=== PATIENT | male | born 1970 | race African-American/Black ===

== ENCOUNTER 2020-11-11 17:51 | Emergency (ER) | payer SELFPAY ==
[2020-11-11] VITALS (8 sets, daily range): BP systolic 134–181; BP diastolic 63–91; PULSE 73–92; RESP 16–30; TEMP 37.6; O2SAT 96–99
--- NOTE | ~2020-11-11 | XR_ITS ---
XR chest 2V DATE: 11/11/2020 18:19 INDICATION: Irregular heart rate. Hypertension. Asthma. TECHNIQUE: PA and lateral views COMPARISON: None FINDINGS: Normal heart size. No hilar or mediastinal enlargement. No pulmonary vascular congestion or pleural effusion or pneumothorax. IMPRESSION: No active cardiopulmonary disease Reviewed, dictated and finalized at location A.
--- NOTE | 2020-11-11 17:54 | ECG_ITS ---
Measurements Intervals [place] Rate: 91 P: 55 GA: 147 QRS: 69 QRSD: 81 T: 37 QT: 348 QTc: 430 Interpretive Statements SINUS RHYTHM POSSIBLE LEFT ATRIAL ENLARGEMENT POSSIBLE LEFT VENTRICULAR HYPERTROPHY BORDERLINE ST-T WAVE ABNORMALITY- INFERIOR LEADS BORDERLINE ECG Electronically Signed On 11-11-2020 19:49:48 CDT by Gianfranco Santoro D.O.
[2020-11-11 18:13] LABS: Basophils Percent Auto 0.3 % (0.2-1.2); Eosinophils Absolute Auto 0.1 K/mm3 (0-0.3); Eosinophils Percent Auto 0.8 % (0-4.4); Hematocrit 38.8 % (42.0-52.0); Hemoglobin 12.5 g/dL (14.0-18.0); Immature Granulocyte Absolute 0.03 K/mm3 (0.00-0.031); Immature Granulocyte Percent A 0.5 % (0-0.5); Lymphocytes Absolute Auto 0.91 K/mm3 (0.9-3.2); Lymphocytes Percent Auto 15.4 % (18.3-44.2); Mean Corpuscular HGB Conc 32.2 g/dl (32-36); Mean Corpuscular Hemoglobin 27.4 pg (26-34); Mean Corpuscular Volume 84.9 fl (80-100); Mean Platelet Volume 10.6 fl (7.4-10.4); Monocytes Absolute Auto 0.9 K/mm3 (0.1-0.6); Monocytes Percent Auto 15.8 % (2.6-8.5); Neutrophils Percent Auto 67.2 % (45.5-73.1); Platelet Count Result 219 k/mm3 (150-375); Red Blood Count 4.57 M/mm3 (4.6-6.20); Red Cell Distribution Width 13.7 % (11.5-14.5); White Blood Count 5.9 K/mm3 (4.5-10.0)
[2020-11-11 18:24] LABS: Anion Gap 8 mmol/L (8-16); Blood Urea Nitrogen 17 mg/dL (9-20); Calcium 8.9 mg/dL (8.4-10.2); Carbon Dioxide 24 mmol/L (22-30); Chloride 108 mmol/L (98-107); Estimated CRCL calculation 75 ml/min; Estimated Glomerular Filt Rate > 60; Glucose 98 mg/dL (65-110); Potassium 3.6 mmol/L (3.4-5.0); Prothrombin Time 13.4 Seconds (11.1-14.7); Sodium 140 mmol/L (137-145)
[2020-11-11 18:25] LABS: Partial Thromboplastin Time 27.8 SECONDS (22.3-36.8)
[2020-11-11 18:36] LABS: Troponin I < 0.012 ng/mL (0.000-0.034)
[2020-11-11] MEDS: ASPIRIN 81 MG CHEWABLE TABLET 324 MG PO (19:52)
[2020-11-11] MEDS: LACTATED RINGERS 1,000 ML 999 ML IV CONT (20:10)
[2020-11-11] MEDS: PROCHLORPERAZINE EDISYLATE 10 MG/2 ML VIAL IV PUSH (20:10)
--- NOTE | 2020-11-11 21:24 | ED.CHESTPAIN ---
HPI - Chest Pain General Chief Complaint: Chest Pain <Hussain Armstrong MD - Last Filed: 11/11/20 21:35> Stated Complaint: CP <Hussain Armstrong MD - Last Filed: 11/11/20 21:35> Time Seen by Provider: 11/11/20 19:27 <Hussain Armstrong MD - Last Filed: 11/11/20 21:35> Source: patient and family <Hussain Armstrong MD - Last Filed: 11/11/20 21:35> Mode of arrival: ambulatory <Hussain Armstrong MD - Last Filed: 11/11/20 21:35> Limitations: no limitations <Hussain Armstrong MD - Last Filed: 11/11/20 21:35> History of Present Illness HPI narrative: 50-year-old male History of hypertension, but has been off of blood pressure medicine for about 3 years He thinks his blood pressures have been okay during that time Today well not doing any particularly stressful activities at around 2:00 he started having a feeling like his heart was racing and jumping around He continues to feel that symptom here even his his monitor shows a sinus rhythm at a rate of 82 Subsequently he started having some chest discomfort which has been persistent, does not radiate, not associated with shortness of breath diaphoresis nausea or vomiting After arriving to the hospital while he was in the waiting room he began having a headache which he describes as a 52 There are no other focal neuro symptoms no vomiting no neck pain no fever Not have a history of headaches <Hussain Armstrong MD - Last Filed: 11/11/20 21:35> Related Data Home Medications: Home Medications Medication Instructions Recorded Confirmed No Home Medications 11/11/20 11/11/20 <Hussain Armstrong MD - Last Filed: 11/11/20 21:35> Allergies/Adverse Reactions: Allergies Allergy/AdvReac Type Severity Reaction Status Date / Time No Known Allergies Allergy Verified 11/11/20 19:26 <Hussain Armstrong MD - Last Filed: 11/11/20 21:35> Review of Systems Review of Systems: All systems reviewed & are unremarkable except as noted in HPI and below <Hussain Armstrong MD - Last Filed: 11/11/20 21:35> Constitutional: Constitutional: Reports no additional constitutional complaints, Denies chills, Denies fatigue, Denies fever(s) and Denies headache(s) <Hussain Armstrong MD - Last Filed: 11/11/20 21:35> Eyes: Eyes: Reports no additional eye complaints, Denies change in vision and Denies photophobia <Hussain Armstrong MD - Last Filed: 11/11/20 21:35> ENT: Denies headache(s) and Denies sore throat <Hussain Armstrong MD - Last Filed: 11/11/20 21:35> Cardiovascular: Cardiovascular: Reports chest pain, Reports rapid heart rate and Denies dyspnea <Hussain Armstrong MD - Last Filed: 11/11/20 21:35> Respiratory: Respiratory: Denies cough and Denies dyspnea <Hussain Armstrong MD - Last Filed: 11/11/20 21:35> Gastrointestinal: Gastrointestinal: Denies abdominal pain, Denies diarrhea, Denies nausea and Denies vomiting <Hussain Armstrong MD - Last Filed: 11/11/20 21:35> Genitourinary: Genitourinary: Denies dysuria and Denies urinary frequency <Hussain Armstrong MD - Last Filed: 11/11/20 21:35> Musculoskeletal: Musculoskeletal: Denies deformity, Denies arthralgias, Denies joint swelling and Denies numbness <Hussain Armstrong MD - Last Filed: 11/11/20 21:35> Integumentary/Breasts: Skin/Breast: Denies rash and Denies wounds <Hussain Armstrong MD - Last Filed: 11/11/20 21:35> Neurologic: Denies dizziness, Denies syncope, Reports headache(s), Denies focal weakness and Denies numbness <Hussain Armstrong MD - Last Filed: 11/11/20 21:35> Psychiatric: Psychiatric: Reports no additional psychiatric complaints <Hussain Armstrong MD - Last Filed: 11/11/20 21:35> Endocrine: Endocrine: Reports no additional endocrine complaints <Hussain Armstrong MD - Last Filed: 11/11/20 21:35> Hematologic/Lymphatic: Hematologic/Lymphatic: Reports no additional hematologic/lymphatic complaints <Hussain Armstrong MD - Last Filed: 11/11/20 21:35> Allergic/Immunologic: Allergic/Immunologic: Reports no additional allergic/
[2020-11-11 21:35] LABS: Troponin I < 0.012 ng/mL (0.000-0.034)
== END 2020-11-11 21:58 | disposition home or self-care (01) ==
PROVIDERS: Emergency Medicine; Emergency Provider Emergency Medicine; PCP Internal Medicine
DX: R00.2 Palpitations (principal); R07.89 Other chest pain; R51.9 Headache, unspecified; I10 Essential (primary) hypertension
CPT/HCPCS: 36415; 71046; 80048; 84484; 85025; 85610; 85730; 93005; 96361; 96374; 99284; A9270; J0780; J7120

== ENCOUNTER 2020-11-22 12:02 | Emergency (ER) | payer SELFPAY ==
--- NOTE | 2020-11-22 12:12 | ED.GENADULT ---
HPI - General Adult General Chief complaint: Skin/Abscess/Foreign Body Stated complaint: insect bite Time Seen by Provider: 11/22/20 12:12 Source: patient Mode of arrival: ambulatory Limitations: no limitations History of Present Illness HPI narrative: 50-year-old male patient presents to the [facility] with complaints of insect bites and rash that started last week. Patient states it has been itchy. Denies any body aches, chills or fevers. Denies any open area or drainage. Patient denies any chest pain or shortness of breath. Patient states the only thing he is put on the bite onto the right forearm is alcohol. Patient states he also has a little bit of a patch of an itchy area to the left ankle and to bilateral sides of the chest. Related Data Home Medications Medication Instructions Recorded Confirmed carvedilol 6.25 mg PO DAILY 11/22/20 11/22/20 Allergies Allergy/AdvReac Type Severity Reaction Status Date / Time No Known Allergies Allergy Verified 11/11/20 19:26 Review of Systems Review of Systems: CONSTITUTIONAL: Denies fever, chills, or sweats. EYES: Denies visual changes, redness, or discharge. ENT: Denies rhinorrhea, congestion, sore throat, or otalgia. CARDIOVASCULAR: Denies chest pain, palpitations, or edema. RESPIRATORY: Denies cough or dyspnea. GASTROINTESTINAL: Denies abdominal pain, nausea, vomiting, or diarrhea. GENITOURINARY: Denies dysuria or hematuria. SKIN: Denies rash or itching. Positive insect bite to right forearm, rash to the left ankle and bilateral sides of the chest MUSCULOSKELETAL: Denies back pain, joint pain, or myalgia. NEUROLOGIC: Denies headache, numbness, or weakness. PSYCHIATRIC: Denies anxiety or depression. PMFSH Comments At the time of my signature I agree with nursing past medical history, surgical, social, and family history. There is no relevant family history pertinent to the presenting complaint. Exam Narrative: GENERAL: Well-appearing, well-nourished, and in no acute distress. HEAD: Normocephalic, atraumatic. EYES: PERRLA and EOMI. ENT: Nares clear, no rhinorrhea or epistaxis. Mucous membranes moist. NECK: Supple. No lymphadenopathy CHEST: Clear to auscultation. No respiratory distress. HEART: Regular rate and rhythm. No murmur heard. Normal peripheral pulses. ABDOMEN: Soft, nontender, nondistended, normal active bowel sounds. EXTREMITIES: Normal range of motion. No edema. SKIN: Warm, dry, no rash. Patient has small little clusters and a little bit of swelling noted to an area on the right forearm that measures approximately 1 cm. There is no open wounds or drainage noted to this area. Patient has some scabbing with 1 or 2 small raised bumps that are pin size. No open wounds or drainage. Patient has same similar pain size erythemic rash noted to bilateral sides of the chest under the breast area. NEURO: No focal deficits. Alert and oriented x3. Course Vital Signs Vital signs: Vital signs reviewed Medical Decision Making Differential Diagnosis Differential Diagnosis: Differential diagnosis: Contact dermatitis, poison kj, poison sumac, psoriasis, eczema, allergic reaction, drug reaction, scabies, tinea syphilis, lung disease, viral exanthema, pityriasis, erythema multiforme. Discussed with patient it does appear that he is got some type of contact dermatitis rash. We will go ahead and give him some triamcinolone to help with the itching but this should go away on its own. Discussed with patient that if it continues to worsen then he will need to follow-up with his primary doctor. Patient verbalized understanding denies any other questions or concerns at this time. Critical Care Time Critical Care Time Critical Care Time: No Discharge Plan Discharge Clinical Impression: Contact dermatitis Qualifiers: Contact dermatitis type: unspecified Contact dermatitis trigger: unspecified trigger Qualified Code(s): L25.9 - Unspecified contact dermatitis, unspecified caus
[2020-11-22 12:19] VITALS: BP 144/100; PULSE 70; RESP 20; TEMP 36.5; O2SAT 100
== END 2020-11-22 12:35 | disposition home or self-care (01) ==
PROVIDERS: Emergency Provider Nurse Practitioner Family; PCP Radiology Diagnostic Radiology
DX: L25.9 Unspecified contact dermatitis, unspecified cause (principal)
CPT/HCPCS: 99213; G0463

== ENCOUNTER 2021-08-23 13:14 | Emergency (ER) | payer SELFPAY ==
[2021-08-23 13:16] VITALS: BP 180/90; PULSE 70; RESP 18; TEMP 36.7; O2SAT 98
--- NOTE | 2021-08-23 13:47 | ED.GENADULT ---
HPI - General Adult General Chief complaint: Ear Stated complaint: ear ache Time Seen by Provider: 08/23/21 13:26 History of Present Illness HPI narrative: 51-year-old male presenting to the emergency department for evaluation of persistent left ear pain. Patient states he has had increased left ear pressure and decreased hearing for approximately last 2 months. Patient states this is causing him to have some headaches and the headaches are causing his blood pressure to elevate. Patient has not taken anything for the ear pain or for the headaches. Patient reports he does have to wear over the ear ear protection at work. Patient denies excessive use of an ear headphones. Patient does report some decreased hearing of the left ear Related Data Home Medications Medication Instructions Recorded Confirmed losartan 50 mg tablet tablet 08/23/21 08/23/21 Allergies Allergy/AdvReac Type Severity Reaction Status Date / Time No Known Allergies Allergy Verified 08/23/21 13:21 Review of Systems Review of Systems: CONSTITUTIONAL: Denies fever, chills, or sweats. EYES: Denies visual changes, redness, or discharge. ENT: See HPI CARDIOVASCULAR: Denies chest pain, palpitations, or edema. RESPIRATORY: Denies cough or dyspnea. GASTROINTESTINAL: Denies abdominal pain, nausea, vomiting, or diarrhea. GENITOURINARY: Denies dysuria or hematuria. SKIN: Denies rash or itching. MUSCULOSKELETAL: Denies back pain, joint pain, or myalgia. NEUROLOGIC: Denies headache, numbness, or weakness. PSYCHIATRIC: Denies anxiety or depression. Exam Narrative: APPEARANCE: Well appearing, no pain, no distress, well-nourished. HEAD: normocephalic, atraumatic. EYES: PERRLA/EOMI, conjunctivae clear. NOSE: Normal no drainage EARS: Cerumen in both ears. Decreased hearing of left THROAT: Pharynx clear, no exudate. NECK: Supple. No adenopathy, no masses. RESPIRATORY: Airway patent, respirations nonlabored. Clear to auscultation bilaterally, no rales, rhonchi, wheezing. CARDIOVASCULAR: Regular rate and rhythm without murmurs rubs or gallops. ABDOMINAL: Soft, nontender, nondistended, normal bowel sounds MUSCULOSKELETAL: Moves all extremities. Strength/ROM intact, No edema, No calf tenderness. NEURO: Alert. Cranial nerves II through XII intact. Grossly intact SKIN: Warm, dry. Normal Color Course Course Emergency Course: Left ear is being irrigated by nursing. Patient had multiple large clumps of cerumen that were removed. Patient states his left ear pain is completely resolved. Vital Signs Vital signs: Vital Signs Temperature 98.0 F 08/23/21 13:16 Pulse Rate 70 08/23/21 13:16 Respiratory Rate 18 08/23/21 13:16 Blood Pressure 180/90 H 08/23/21 13:16 Pulse Oximetry 98 08/23/21 13:16 Temperature 98.0 F 08/23/21 13:16 Pulse Rate 70 08/23/21 13:16 Respiratory Rate 18 08/23/21 13:16 Blood Pressure 180/90 H 08/23/21 13:16 Pulse Oximetry 98 08/23/21 13:16 Procedures Ear Wax Removal Both Ears: Cerumenolytic Used: other Results: Re-examined: cerumen removed completely TM Examination: TM(s) intact, normal appearance Ear Canal Exam: atraumatic Patient Tolerated Procedure: well Complications: no problems Technique: ear canal irrigated and ear canal curetted Medical Decision Making Vital Signs Vital Signs: Vital Signs Temperature 98.0 F 08/23/21 13:16 Pulse Rate 70 08/23/21 13:16 Respiratory Rate 18 08/23/21 13:16 Blood Pressure 180/90 H 08/23/21 13:16 Pulse Oximetry 98 08/23/21 13:16 Temperature 98.0 F 08/23/21 13:16 Pulse Rate 70 08/23/21 13:16 Respiratory Rate 18 08/23/21 13:16 Blood Pressure 180/90 H 08/23/21 13:16 Pulse Oximetry 98 08/23/21 13:16 Discharge Plan Discharge Clinical Impression: Impacted cerumen Qualifiers: Laterality: left Qualified Code(s): H61.22 - Impacted cerumen, left ear Patient Disposition: Home, [place]
== END 2021-08-23 14:40 | disposition home or self-care (01) ==
PROVIDERS: Emergency Provider Emergency Medicine; PCP Radiology Diagnostic Radiology
DX: H61.22 Impacted cerumen, left ear (principal)
CPT/HCPCS: 69210; 99282; A9270

== ENCOUNTER 2021-10-12 15:45 | Emergency (ER) | payer SELFPAY ==
[2021-10-12 15:54] VITALS: BP 180/106; PULSE 62; RESP 16; TEMP 35.6; O2SAT 100
--- NOTE | 2021-10-12 16:14 | ED.MALEGU ---
HPI - Male Genitourinary General Chief complaint: Urogenital-Male Stated complaint: Penis Problem Time Seen by Provider: 10/12/21 16:14 Source: patient Mode of arrival: ambulatory Limitations: no limitations History of Present Illness HPI Narrative: 51 y o M presents with burning with urination for approx. 1 wk. No discharge. No penile swelling or rash. Denies swelling/pain to testicles. Would like STI testing. All systems reviewed and negative except as noted above. Related Data Home Medications Medication Instructions Recorded Confirmed losartan 50 mg tablet 1 tablet PO DAILY 08/23/21 10/12/21 Allergies Allergy/AdvReac Type Severity Reaction Status Date / Time No Known Allergies Allergy Verified 10/12/21 16:22 Review of Systems Review of Systems: CONSTITUTIONAL: Denies fever, chills, or sweats. EYES: Denies visual changes, redness, or discharge. ENT: Denies rhinorrhea, congestion, sore throat, or otalgia. CARDIOVASCULAR: Denies chest pain, palpitations, or edema. RESPIRATORY: Denies cough or dyspnea. GASTROINTESTINAL: Denies abdominal pain, nausea, vomiting, or diarrhea. GENITOURINARY: Reports dysuria. Denies hematuria. SKIN: Denies rash or itching. MUSCULOSKELETAL: Denies back pain, joint pain, or myalgia. NEUROLOGIC: Denies headache, numbness, or weakness. PSYCHIATRIC: Denies anxiety or depression. All other systems reviewed are negative, except as documented in HPI. PMFSH Comments At time of signature, agree with nursing past medical, surgical, social and family history. There is no relevant family history pertinent to the presenting complaint. Exam Narrative: GENERAL: This is a well-nourished, well-developed patient, in no apparent distress. HEAD: normocephalic, atraumatic. EYES: PERRL. Sclera clear/white. Vision is grossly intact. EARS: External ears normal NOSE: External nose normal NECK: Neck supple, non-tender without lymphadenopathy, masses or thyromegaly. CARDIOVASCULAR: Regular rate and rhythm without murmurs, gallops, or rubs. RESPIRATORY: Clear to auscultation. Breath sounds equal bilaterally. No wheezes, rales, or rhonchi. SKIN: warm, Dry, intact with no suspicious lesions or rash, good texture and turgor. NEURO: awake, alert, and oriented to person, place and time. There were no obvious focal neurologic abnormalities. EXTREMITIES: No joint tenderness, effusion, or edema noted. Course Course Level of Care: Express Care Visit Vital Signs Vital signs: Vital Signs Temperature 35.6 C L 10/12/21 15:54 Pulse Rate 62 10/12/21 15:54 Respiratory Rate 16 10/12/21 15:54 Blood Pressure 180/106 H 10/12/21 15:54 Pulse Oximetry 100 10/12/21 15:54 Oxygen Delivery Room Air 10/12/21 15:54 Temperature 35.6 C L 10/12/21 15:54 Pulse Rate 62 10/12/21 15:54 Respiratory Rate 16 10/12/21 15:54 Blood Pressure 180/106 H 10/12/21 15:54 Pulse Oximetry 100 10/12/21 15:54 Oxygen Delivery Room Air 10/12/21 15:54 Reviewed MDM - Male Genitourinary MDM Narrative Medical decision making narrative: Patient is aware of diagnosis, understands and agrees to treatment plan. Anticipatory guidance given. Patient agrees to follow-up as directed and is aware of reasons to seek care at the emergency department. Portions of this record may have been created with voice recognition software Discharge Plan Discharge Clinical Impression: Dysuria, Concern about sexually transmitted disease in male without diagnosis, Hypertension Patient Disposition: Home, Self-Care Condition: Stable Instructions: Antibiotic Form Additional Instructions: You were treated for gonorrhea and chlamydia today. Take antibiotic as prescribed until gone. Avoid all sexual activities until you know your test results. If you have a positive test for fall inform your partner and they will need to be treated. Avoid sexual activities for 2 to 3 weeks if you have a positive test result. See yo
[2021-10-12] MEDS: cefTRIAXone 500 MG, LIDOCAINE HCL 1% LOCAL INJ 1 ML IM (16:55)
== END 2021-10-12 17:12 | disposition home or self-care (01) ==
PROVIDERS: Emergency Provider Nurse Practitioner Family; PCP Internal Medicine
DX: R30.0 Dysuria (principal); Z20.2 Contact with and (suspected) exposure to infections with a predominantly sexual mode of transmission; I10 Essential (primary) hypertension
CPT/HCPCS: 96372; 99213; G0463; J0696

== ENCOUNTER 2021-10-14 11:30 | Emergency (ER) | payer SELFPAY ==
[2021-10-14 11:39] VITALS: BP 160/90; PULSE 66; RESP 16; TEMP 36.2; O2SAT 100
--- NOTE | 2021-10-14 11:47 | ED.SKABFB ---
HPI - Skin/Abscess/Foreign Bdy General Chief complaint: Wound/Laceration Stated complaint: insect bite Time Seen by Provider: 10/14/21 12:00 Source: patient and RN notes reviewed Mode of arrival: ambulatory Limitations: no limitations History of Present Illness HPI narrative: 51-year-old male presents concern for wasp sting to his left wrist. He reports he was stung on Tuesday and since then the area has become more red, swollen, tender, itchy. Reports he has been using prescribed steroid cream without relief. He reports he started taking doxycycline today for an unrelated concern. He denies fever, bodies, chills, sweats, drainage from the site MD complaint: insect bite/sting Related Data Home Medications Medication Instructions Recorded Confirmed losartan 50 mg tablet 1 tablet PO DAILY 08/23/21 10/12/21 hydrochlorothiazide 10/14/21 potassium 10/14/21 Allergies Allergy/AdvReac Type Severity Reaction Status Date / Time No Known Allergies Allergy Verified 10/12/21 16:22 Review of Systems Review of Systems: CONSTITUTIONAL: Denies malaise, chills, sweats, or fever. EYES: Denies redness, or discharge. ENT: Denies rhinorrhea, congestion, swollen lips, swollen tongue CARDIOVASCULAR: Denies chest pain, palpitations, or edema. RESPIRATORY: Denies cough or dyspnea. GASTROINTESTINAL: Denies abdominal pain, nausea, vomiting SKIN: Reports redness, swelling, tenderness, itching to the left forearm MUSCULOSKELETAL: Denies joint pain or myalgia. NEUROLOGIC: Denies headache. All systems reviewed & are unremarkable except as noted in HPI and below PMFSH Comments At time of signature, agree with nursing past medical, surgical, social and family history. There is no relevant family history pertinent to the presenting complaint Exam Narrative: GENERAL: Well-appearing, well-nourished, and in no acute distress. HEAD: Normocephalic, atraumatic. EYES: PERRLA, conjunctivae clear ENT: Mucous membranes moist. NECK: Supple. No lymphadenopathy CHEST: Clear to auscultation. No respiratory distress. HEART: Regular rate and rhythm. SKIN: Warm, dry. Left palmar side of the wrist and forearm is erythematous, warm without induration or fluctuation noted NEURO: Alert and oriented x3. PSYCH: Normal mood and affect Course Course Emergency Course: Advised patient to continue doxycycline as previously prescribed, added prednisone for 5 days. Advised patient if symptoms do not improve in 48 hours to return for reevaluation Patient is aware of diagnosis, understands and agrees to treatment plan. Anticipatory guidance given. Patient agrees to follow-up as directed and is aware of reasons to seek care at the emergency department. Portions of this record may have been created with voice recognition software Level of Care: Express Care Visit Vital Signs Vital signs: Vital Signs Temperature 97.2 F L 10/14/21 11:39 Pulse Rate 66 10/14/21 11:39 Respiratory Rate 16 10/14/21 11:39 Blood Pressure 160/90 H 10/14/21 11:39 Pulse Oximetry 100 10/14/21 11:39 Oxygen Delivery Room Air 10/14/21 11:39 Temperature 97.2 F L 10/14/21 11:39 Pulse Rate 66 10/14/21 11:39 Respiratory Rate 16 10/14/21 11:39 Blood Pressure 160/90 H 10/14/21 11:39 Pulse Oximetry 100 10/14/21 11:39 Oxygen Delivery Room Air 10/14/21 11:39 Reviewed. MDM - Skin/Abscess/Foreign Bdy MDM Narrative Medical decision making narrative: Exam findings show no acute concerns or changes; patient is non-toxic appearing and is in no distress. Patient is appropriate for outpatient treatment and follow-up. Differential Diagnosis Differential diagnosis: Likely abscess of skin or subcutaneous tissue, cellulitis, insect bites, contact dermatitis and other (Cellulitis, local or allergic reaction) Critical Care Time Critical Care Time Critical Care Time: No Discharge Plan Discharge Clinical Impression: Wasp sting Patient Disposition: Home, [place]
== END 2021-10-14 12:11 | disposition home or self-care (01) ==
PROVIDERS: Emergency Provider Nurse Practitioner; PCP Internal Medicine
DX: T63.461A Toxic effect of venom of wasps, accidental (unintentional), initial encounter (principal); I10 Essential (primary) hypertension; J45.909 Unspecified asthma, uncomplicated
CPT/HCPCS: 99213; G0463

== ENCOUNTER 2023-09-10 19:24 | Emergency (ER) | payer OTHER, SELFPAY ==
--- NOTE | ~2023-09-10 | CT_ITS ---
CT of the Abdomen and Pelvis: Indication: Abdominal trauma Technique: 2.5 mm axial scans were obtained through the abdomen and pelvis following intravenous adm inistration of 100 cc of Omnipaque 350. Dose reduction technique was used on this scan by utilizing a utomated exposure control and iterative reconstruction technique. The dose-length product (DLP) was 6 16.15 mGy-cm. Findings: Scans through the lung bases are unremarkable. The liver, spleen, pancreas, gallbladder, adrenals and kidneys are within normal limits. No evidence of aortic aneurysm. No lymphadenopathy. No bowel obstruction or bowel wall thickening. There is no evidence to suggest acute appendicitis. Th ere is minimal superficial infiltrative change at the subcutaneous soft tissues anteriorly to right l ower quadrant. No masslike hematoma or injury identified. Images through the pelvis were performed. Urinary bladder unremarkable. No pelvic mass seen. No ascit es. Impression: Minimal superficial skin thickening and infiltrative change at the anterior subcutaneous soft tissues at the right lower quadrant, compatible with abrasion/injury. No hematoma or other posttraumatic abn ormality seen. Reviewed, dictated and finalized at [facility]. Impression: Minimal superficial skin thickening and infiltrative change at the anterior sub cutaneous soft tissues at the right lower quadrant, compatible with abrasion/in jury. No hematoma or other posttraumatic abnormality seen.
[2023-09-10 19:34] VITALS: BP 154/104; PULSE 84; RESP 18; TEMP 36.6; O2SAT 100
--- NOTE | 2023-09-10 20:29 | ED.GENADULT ---
HPI - General Adult General Chief complaint: Unspecified Stated complaint: bruise to abd Time Seen by Provider: 09/10/23 20:13 History of Present Illness HPI narrative: 53-year-old male presents to the emergency department for abdominal trauma. Patient states around 2:00 p.m. today a large industrial fan fell over and hit him in the abdomen. He has a large bruise to his right lower quadrant which is tender to palpation. He denies other injuries acquired. He is not anticoagulated. Related Data Home Medications Medication Instructions Recorded Confirmed losartan 50 mg tablet 1 tablet PO DAILY 08/23/21 10/12/21 hydrochlorothiazide 10/14/21 potassium 10/14/21 Allergies Allergy/AdvReac Type Severity Reaction Status Date / Time No Known Allergies Allergy Verified 09/10/23 19:34 Review of Systems Review of Systems: All systems reviewed & are unremarkable except as noted in HPI and below Exam Narrative: GENERAL: Well-appearing, well-nourished, and in no acute distress. HEAD: Normocephalic, atraumatic. EYES: PERRLA and EOMI. ENT: Nares clear, no rhinorrhea or epistaxis. Mucous membranes moist. NECK: Supple. CHEST: Clear to auscultation. No respiratory distress. HEART: Regular rate and rhythm. No murmur heard. Normal peripheral pulses. ABDOMEN: normoactive bowel sounds. Abdomen soft with tenderness and large area of ecchymosis over the right lower quadrant with overlying induration to this area. No rebound, guarding or rigidity. EXTREMITIES: Normal range of motion. No edema. SKIN: Warm, dry, no rash. NEURO: No focal deficits. Alert and oriented x3 Course Vital Signs Vital signs: Vital Signs Temperature 97.8 F 09/10/23 19:34 Pulse Rate 84 09/10/23 19:34 Respiratory Rate 18 09/10/23 19:34 Blood Pressure 154/104 H 09/10/23 19:34 Pulse Oximetry 100 09/10/23 19:34 Oxygen Delivery Room Air 09/10/23 19:34 Temperature 97.8 F 09/10/23 19:34 Pulse Rate 84 09/10/23 19:34 Respiratory Rate 18 09/10/23 19:34 Blood Pressure 154/104 H 09/10/23 19:34 Pulse Oximetry 100 09/10/23 19:34 Oxygen Delivery Room Air 09/10/23 19:34 Medical Decision Making MDM Narrative Medical decision making narrative: 53-year-old male presents to emergency department for abdominal trauma occurred today. See HPI for further history. Triage vital significant for blood pressure 154/104, is unremarkable. Exam is significant for the above. Given the extensiveness of ecchymosis / hematoma, will obtain lab work and CT abdomen pelvis with contrast to evaluate for intra-abdominal injury. CBC without leukocytosis. Hemoglobin is 12.6 with a normal MCV , this is consistent with prior. Chemistries are unremarkable. Lipase is normal. CT abdomen pelvis shows minimal superficial skin thickening infiltrative change of the anterior subcutaneous soft tissues of the right lower quadrant, compatible with abrasion or injury. There is no hematoma or other posttraumatic abnormality seen. Workup discussed with the patient. Biceps take Tylenol for pain and follow-up closely with PCP. Strict ED return precautions were discussed including expanding ecchymosis, hematoma, abdominal pain. He is agreeable to plan verbalized understanding. Discharged in stable condition Vital Signs Vital Signs: Vital Signs Temperature 97.8 F 09/10/23 19:34 Pulse Rate 84 09/10/23 19:34 Respiratory Rate 18 09/10/23 19:34 Blood Pressure 154/104 H 09/10/23 19:34 Pulse Oximetry 100 09/10/23 19:34 Oxygen Delivery Room Air 09/10/23 19:34 Temperature 97.8 F 09/10/23 19:34 Pulse Rate 84 09/10/23 19:34 Respiratory Rate 18 09/10/23 19:34 Blood Pressure 154/104 H 09/10/23 19:34 Pulse Oximetry 100 09/10/23 19:34 Oxygen Delivery Room Air 09/10/23 19:34 Lab Data 09/10/23 20:39 09/10/23 20:39 Labs: Lab Results 09/10/23 Range/Units 20:39 WBC 9.3 (4.5-1
[2023-09-10 20:45] LABS: Basophils Percent Auto 0.4 % (0.2-1.2); Eosinophils Absolute Auto 0.2 K/mm3 (0-0.3); Eosinophils Percent Auto 2.3 % (0-4.4); Hematocrit 37.7 % (42.0-52.0); Hemoglobin 12.6 g/dL (14.0-18.0); Immature Granulocyte Absolute 0.02 K/mm3 (0.00-0.031); Immature Granulocyte Percent A 0.2 % (0-0.5); Lymphocytes Absolute Auto 3.42 K/mm3 (0.9-3.2); Lymphocytes Percent Auto 36.9 % (18.3-44.2); Mean Corpuscular HGB Conc 33.4 g/dl (32-36); Mean Corpuscular Hemoglobin 27.7 pg (26-34); Mean Corpuscular Volume 82.9 fl (80-100); Mean Platelet Volume 10.3 fl (7.4-10.4); Monocytes Absolute Auto 0.8 K/mm3 (0.1-0.6); Monocytes Percent Auto 8.8 % (2.6-8.5); Neutrophils Absolute Auto 4.8 K/mm3 (1.3-6.7); Neutrophils Percent Auto 51.4 % (45.5-73.1); Platelet Count Result 293 k/mm3 (150-375); Red Blood Count 4.55 M/mm3 (4.6-6.20); Red Cell Distribution Width 13.7 % (11.5-14.5); White Blood Count 9.3 K/mm3 (4.5-10.0)
[2023-09-10 20:53] LABS: Prothrombin Time 13.8 Seconds (11.1-14.7)
[2023-09-10 20:54] LABS: Alanine Aminotransferase 24 U/L (6-50); Albumin Level 4.8 g/dL (3.5-5.1); Alkaline Phosphatase 101 U/L (38-126); Anion Gap 12 mmol/L (4-12); Aspartate Amino Transferase 31 U/L (17-59); Bilirubin,Total 1.1 mg/dL (0.2-1.3); Blood Urea Nitrogen 21 mg/dL (9-20); Calcium 8.5 mg/dL (8.4-10.2); Carbon Dioxide 22 mmol/L (22-30); Chloride 107 mmol/L (98-107); Estimated CRCL calculation 91 ml/min; Estimated Glomerular Filt Rate > 60; Glucose 91 mg/dL (65-110); Lipase 65 U/L (23-300); Partial Thromboplastin Time 27.4 Seconds (22.3-36.8); Potassium 3.4 mmol/L (3.4-5.0); Sodium 141 mmol/L (137-145)
[2023-09-10 21:12] LABS: Estimated CRCL calculation 82 ml/min; Estimated Glomerular Filt Rate > 60
== END 2023-09-10 21:23 | disposition home or self-care (01) ==
PROVIDERS: Emergency Provider Physician Assistant; PCP Family Medicine
DX: S30.1XXA Contusion of abdominal wall, initial encounter (principal); W22.8XXA Striking against or struck by other objects, initial encounter
CPT/HCPCS: 36415; 74177; 80053; 83690; 85025; 85610; 85730; 99284; Q9967

== ENCOUNTER 2023-12-11 15:46 | Emergency (ER) | payer OTHER, SELFPAY ==
--- NOTE | 2023-12-11 15:51 | PC.NURSE ---
Pt name called for vital signs and pt ambulated up to triage with partner who states that they are going to go somewhere else. Pt and partner both ambulated to exit using steady gait
== END 2023-12-11 16:21 | disposition left against medical advice (07) ==
LOC: ANHED 16:00
PROVIDERS: PCP Family Medicine
DX: M79.632 Pain in left forearm (principal)
CPT/HCPCS: 99199